=== PATIENT | female | born 1995 | race Caucasian/White ===

== ENCOUNTER → 2016-10-14 | Outpatient (CLI) | payer OTHER | END | disposition home or self-care (01) | LOC: C.LABSPEC 15:10 | PROVIDERS: ATTEND Dermatology | DX: L73.2 Hidradenitis suppurativa (principal) ==

== ENCOUNTER → 2017-06-02 | Outpatient (CLI) | payer OTHER ==
[2017-06-02 14:00] LABS: BASO % 0.4 %; BASO ABS # 0.03 K/uL (0-0.2); COMPLETE YES; EOS % 1.6 %; HEMATOCRIT 37.9 % (37-47); IG% 0.3 %; LYMPH % 40.7 %; LYMPH ABS # 2.85 K/uL (1.2-3.4); MEAN CELL VOLUME 96.2 fL (80-100); MEAN CORPUSCULAR HEMOGLOBIN 32.2 pg (25-34); MEAN CORPUSCULAR HGB CONC 33.5 g/dl (32-36); MEAN PLATELET VOLUME 10.7 fL (7.4-10.4); PLATELET COUNT 245 K/uL (130-400); RED BLOOD COUNT 3.94 M/uL (4.2-5.4); WHITE BLOOD COUNT 7.01 K/uL (4.8-10.8)
[2017-06-02 14:25] LABS: ALT/SGPT 19 U/L (12-78); AST/SGOT 14 U/L (15-37); BLOOD UREA NITROGEN 13 mg/dl (7-18); BUN/CREATININE RATIO 20.3 (10-20); CALCIUM 9.1 mg/dl (8.5-10.1); CARBON DIOXIDE 25 mmol/L (21-32); CHLORIDE 108 mmol/L (98-107); CHOLESTEROL 123 mg/dl (0-200); CREATININE 0.66 mg/dl (0.60-1.20); GLUCOSE 86 mg/dl (70-99); POTASSIUM 3.7 mmol/L (3.5-5.1); SODIUM 141 mmol/L (136-145); TRIGLYCERIDES 93 mg/dl (0-150); VERY LOW DENSITY LIPOPROT CALC 19 mg/dl
[2017-06-02 14:36] LABS: ALB/GLOB RATIO 0.9 (0.9-2); ALKALINE PHOSPHATASE 75 U/L (45-117); CHOLESTEROL/HDL RATIO 2.8; HDL CHOLESTEROL 44 mg/dl; LDL CHOLESTEROL CALCULATED 60 mg/dl
[2017-06-02 15:08] LABS: ESTIMATED AVERAGE GLUCOSE 97 mg/dl; HA1C FLAG Normal (Normal)
== END | disposition home or self-care (01) ==
LOC: C.LABBC 10:19
PROVIDERS: ATTEND Nurse Practitioner Adult Health
DX: Z00.00 Encounter for general adult medical examination without abnormal findings (principal); R63.5 Abnormal weight gain; R53.83 Other fatigue

== ENCOUNTER → 2017-09-14 | Outpatient (CLI) | payer OTHER ==
[~2017-09-14] MED LIST: BENZ100C18 PO; VITA10006 PO
== END | disposition home or self-care (01) ==
LOC: C.PATHSPEC 17:23
PROVIDERS: ATTEND Plastic Surgery
DX: L72.0 Epidermal cyst (principal)

== ENCOUNTER 2017-09-26 20:15 | Emergency (ER) | payer OTHER ==
[~2017-09-26] VITALS: Ht 170.2 cm; Wt 101.2 kg
[2017-09-26 20:19] VITALS: Ht 170.2 cm; Wt 101.2 kg
[2017-09-26] MEDS ORDERED: VITA10006 PO (20:26)
[2017-09-26] MEDS ORDERED: IBUPROFEN 600 MG TAB PO STA (20:35)
[2017-09-26] MEDS ORDERED: ACETAMINOPHEN 500 MG TAB PO STA (20:35)
[2017-09-26] MEDS ORDERED: ALBUTEROL HFA 8 GM INHALER INH ONE (20:45)
[2017-09-26] MEDS ORDERED: BENZONATATE 100MG CAP PO ONE (20:45)
--- NOTE | 2017-09-26 20:52 | EMERGENCY ROOM VISIT NOTE ---
History Report prepared by Petr: Jeanne Shaw Under the Supervision of: Dr. Chandra Chau M.D. First contact with patient: 20:29 Chief Complaint: FLU LIKE SX Stated Complaint: SORE THROAT,FEVER,CONGESTION,RANDOM SOB History of Present Illness The patient is a 22 year old female who presents to the Emergency Room with complaints of constant generalized illness beginning three days ago. The patient is in the room with a friend. The patient reports a runny nose, a dry cough, diarrhea, fever, chills, and body aches. She notes slight chest tightness and difficulty breathing beginning yesterday. Today, the patient started to have a sorethroat. She denies any ear pain, vomiting, or urinary symptoms. The patient got a flu shot this year. She denies any sick contact. The patient has a history of asthma and pneumonia when she was a young child. Source of History: patient Onset: three days ago Position: other (generalized) Quality: other (illness) Timing: other (constant) Associated Symptoms: + fevers, + chills, + sorethroat, + cough, + SOB, + diarrhea, No vomiting, No urinary symptoms Review of Systems See HPI for pertinent positives & negatives. A total of 10 systems reviewed and were otherwise negative. Past Medical & Surgical Medical Problems: (1) Asthma Family History Patient reports no known family medical history. Social History Smoking Status: Never Smoker Occupation Status: [employer] student Current/Historical Medications Scheduled Vitamin A (Vitamin A), 1 CAP PO DAILY Scheduled PRN Benzonatate (Tessalon Perles), 100-200 MG PO TID PRN for Cough Allergies Coded Allergies: No Known Allergies (Unverified , 09/26/17) Physical Exam Vital Signs Date Time Temp Pulse Resp B/P (MAP) Pulse Ox O2 Delivery O2 Flow Rate FiO2 09/26/17 22:09 38.1 113 20 117/47 98 09/26/17 22:09 38.1 113 20 117/74 98 Room Air 09/26/17 20:19 39.4 124 18 133/78 98 Room Air Physical Exam GENERAL: Patient is in no acute distress. HEENT: No acute trauma, normocephalic atraumatic, mucous membranes moist, no scleral icterus, moderate nasal congestion, no throat erythema or exudate. NECK: No stridor, no adenopathy, no meningismus, trachea is midline. LUNGS: Clear to auscultation bilaterally, no wheeze, no rhonchi, breath sounds equal. HEART: Tachycardic with regular rhythm, no murmurs. ABDOMEN: Soft, nontender, bowel sounds positive, no hernias, no peritonitis. EXTREMITIES: No cyanosis or edema, full range of motion of all the joints without pain or difficulty, no signs for acute trauma. NEUROLOGIC: Oriented x 3, no acute motor or sensory deficits, no focal weakness. SKIN: No rash, no jaundice, no diaphoresis. Medical Decision & Procedures ER Provider Diagnostic Interpretation: Radiology results as stated below per my review and radiologist interpretation: CHEST ONE VIEW PORTABLE FINDINGS: Patient is rotated. Lung volumes are normal. No pneumothorax or pleural effusion is noted. Pulmonary vascularity is normal. Lungs are clear. Cardiomediastinal silhouette is unremarkable. IMPRESSION: No acute cardiopulmonary findings. Electronically signed by: John Kim M.D. Medications Administered Medications (Trade) Dose Ordered Sig/Adolfo Route Start Time Stop Time Status Last Admin Dose Admin Ibuprofen (Motrin Tab) 600 mg NOW STAT PO 09/26/17 20:35 09/26/17 20:37 DC 09/26/17 20:57 600 MG Acetaminophen (Tylenol Tab) 1,000 mg NOW STAT PO 09/26/17 20:35 09/26/17 20:37 DC 09/26/17 20:56 1,000 MG Albuterol (Ventolin Hfa Inhaler) 3 puffs NOW ONCE INH 09/26/17 20:45 09/26/17 20:46 DC 09/26/17 20:57 3 PUFFS Benzonatate (Tessalon Perles Cap) 100 mg NOW ONCE PO 09/26/17 20:45 09/26/17 20:46 DC 09/26/17 20:57 100 MG ED Course 2029: The patient was evaluated in room C6. A complete history and physical exam was performed. 2034: Ordered Acetaminophen 1000 mg PO, Ibuprofen 600 mg PO. 2044: Ordered Benzonatate 100 mg PO, Albuterol 3 puffs INH. 2132: I updated the patient on her test results. She is ready to go home. 2152: Reevaluated the patient. Discussed results and discharge instructions: SHe verbalized understanding and agreement. The patient is ready for discharge. Medical Decision Differential diagnoses: influenza or flu-like symptoms, pneumonia, dehydration, pharyngitis, otitis media, sinusitis. The patient presents with flulike symptoms. On exam, she was febrile with a mild tachycardia. Chest film does not show pneumonia. She was not toxic. No evidence for pharyngitis on exam. The patient was given oral Motrin and oral Tylenol. She was given albuterol via [facility]. She received Tessalon Perles orally for cough. The patient's tachycardia has improved, her fever has improved. I suspect she has influenza or something flulike. She is out of the window though for Tamiflu. The patient will be discharged with Motrin/Tylenol, rest, hydration, Tessalon Perles and albuterol. If worsening, she can return. Medication Reconcilliation Current Medication List: was personally reviewed by me Blood Pressure Screening Patient's blood pressure: Elevated blood pressure Blood pressure disposition: Elevated BP felt to be situational Impression Primary Impression: Influenza-like symptoms Scribe Attestation The scribe's documentation has been prepared under my direction and personally reviewed by me in its entirety. I confirm that the note above accurately reflects all work, treatment, procedures, and medical decision making performed by me. Departure Information Dispostion Home / Self-Care Prescriptions Benzonatate (TESSALON PERLES) 100 Mg Cap 100-200 MG PO TID Y for Cough, #16 CAP Prov: Chandra Chau M.D. 09/26/17 Referrals No Doctor, Assigned (PCP) Forms HOME CARE DOCUMENTATION FORM, IMPORTANT VISIT INFORMATION Patient Instructions My [facility] Additional Instructions albuterol 3 puffs every 6 hours fluids rest motrin and or tylenol for pain and fevers tessalon perles 1-2 tab up to 3x per day for cough return if worsening as we discussed chest film was clear today
--- NOTE | 2017-09-26 21:06 | DIAGNOSTIC IMAGING REPORT ---
CHEST ONE VIEW PORTABLE CLINICAL HISTORY: Cough and fever. Sore throat. COMPARISON STUDY: No previous studies for comparison. FINDINGS: Patient is rotated. Lung volumes are normal. No pneumothorax or pleural effusion is noted. Pulmonary vascularity is normal. Lungs are clear. Cardiomediastinal silhouette is unremarkable. IMPRESSION: No acute cardiopulmonary findings. Electronically signed by: John Kmi M.D. 09/26/2017 9:04 PM Dictated Date/Time: 09/26/2017 9:04 PM
[2017-09-26] MEDS ORDERED: BENZ100C18 PO (21:50)
[2017-09-26 22:09] VITALS: BP 117/74; PULSE 113; TEMP 38.1; O2SAT 98
== END 2017-09-26 22:11 | disposition home or self-care (01) ==
LOC: C.EDB 20:16 → C.EDC 22:11
DX: R05 Cough (principal); R19.7 Diarrhea, unspecified; R50.9 Fever, unspecified; R52 Pain, unspecified; J45.909 Unspecified asthma, uncomplicated; Z87.01 Personal history of pneumonia (recurrent)

== ENCOUNTER → 2017-09-27 | Outpatient (CLI) | payer OTHER | END | disposition home or self-care (01) | LOC: C.LABSPEC 11:31 | PROVIDERS: ATTEND Nurse Practitioner Adult Health | DX: J02.9 Acute pharyngitis, unspecified (principal) ==

== ENCOUNTER → 2017-12-05 | Outpatient (CLI) | payer OTHER ==
[~2017-12-05] MED LIST changes: -BENZ100C18 PO
== END | disposition home or self-care (01) ==
LOC: C.LABSPEC 17:32
PROVIDERS: ATTEND Nurse Practitioner Family
DX: J02.9 Acute pharyngitis, unspecified (principal)